=== PATIENT | female | born 1940 | race Hispanic/Latino ===

== ENCOUNTER 2021-08-11 15:33 | Outpatient (CLI) | payer OTHER | END 2021-08-11 15:34 | disposition home or self-care (01) | LOC: NAV RAD 15:33 | PROVIDERS: ATTEND Family Medicine | DX: M25.552 Pain in left hip (principal) ==

== ENCOUNTER 2021-11-05 14:33 | Outpatient (CLI) | payer OTHER | END 2021-11-05 14:34 | disposition home or self-care (01) | LOC: NAV RAD 14:33 | PROVIDERS: ATTEND Family Medicine | DX: M47.22 Other spondylosis with radiculopathy, cervical region (principal) | CPT/HCPCS: 72040 ==